=== PATIENT | male | born 1955 | race Caucasian/White ===

== ENCOUNTER 2017-08-18 10:47 | Emergency (ER) | payer OTHER, MEDICAID ==
[~2017-08-18] VITALS: Ht 170.2 cm; Wt 70.3 kg
[2017-08-18 10:47] VITALS: BP_SYST 107
[2017-08-18] MEDS ORDERED: LACTULOSE 20 GM/30 ML UDC PO ONE (11:00)
== END 2017-08-18 11:13 | disposition home or self-care (01) ==
LOC: SED 10:47
DX: K59.00 Constipation, unspecified (principal); R56.9 Unspecified convulsions; Z88.1 Allergy status to other antibiotic agents
CPT/HCPCS: 99283

== ENCOUNTER 2020-11-27 17:30 | Emergency (ER) | payer OTHER, MEDICAID ==
[~2020-11-27] VITALS: Ht 172.7 cm; Wt 72.6 kg
[2020-11-27 17:55] VITALS: BP_SYST 132
--- NOTE | 2020-11-27 17:55 | NUR ---
Pt to remain in the ER lobby until ER bed becomes available.
--- NOTE | 2020-11-27 19:28 | NUR ---
[facility] Side rails up. Report given to DAREK DARLING.
--- NOTE | 2020-11-27 19:28 | NUR ---
Pt report received. Pt BIB caregiver from [facility] with scratches and swelling to top of left hand. Pt with baseline cognitive deficits. Pt states that he got the scratches from a fall, denies hitting head.
--- NOTE | 2020-11-27 20:00 | NUR ---
Dr. Pickering assessing pt.
--- NOTE | 2020-11-27 20:15 | NUR ---
Wound care provided. Site cleansed with NS, dressin applied.
[2020-11-27] MEDS ORDERED: CEPH500C2 PO (20:21)
[2020-11-27 20:39] VITALS: BP_SYST 130
--- NOTE | 2020-11-27 20:39 | NUR ---
Caregiver given written and verbal discharge instructions and verbalizes understanding. ER MD discussed with patient the results and treatment provided. Patient in stable condition. ID arm band removed. Rx of Cephalexin given. Patient educated on pain management and to follow up with PMD. Pain Scale 0/10. Opportunity for questions provided and answered. Medication side effect fact sheet provided.
--- NOTE | 2020-11-27 20:39 | NUR ---
Leslie morel in ED - 11/28/20 at 0723 by STEVENSONJ MD assessing pt.
== END 2020-11-27 20:39 | disposition home or self-care (01) ==
LOC: SED 17:43
DX: L03.114 Cellulitis of left upper limb (principal); Z88.1 Allergy status to other antibiotic agents
CPT/HCPCS: 99283